=== PATIENT | male | born 1950 | race Caucasian/White ===

== ENCOUNTER → 2016-04-09 | Day surgery (SDC) | payer OTHER ==
[2016-04-03 12:24] VITALS: Ht 180.3 cm; Wt 99.1 kg
[~2016-04-09] VITALS: Ht 180.3 cm; Wt 99.1 kg
[~2016-04-09] MED LIST: ATROPINE SULFATE 0.1 MG/ML 5ML SYR IV PRN; BUPIVACAINE/EPINEPHRINE 0.5% MPF 1:200,000 30 ML VIAL ONE; CEFAZOLIN 2000 MG/60 ML D5W IV SCH; DEXAMETHASONE SOD INJ 4 MG/ML VIAL ONE; FENTANYL CITRATE INJ 50 MCG/1 ML 2 ML VIAL IV PRN; FENTANYL CITRATE INJ 50 MCG/1 ML 2 ML VIAL ONE; KETOROLAC TROMETHAMINE 30 MG/ML VIAL IV. PRN; KETOROLAC TROMETHAMINE 30 MG/ML VIAL ONE; LABETALOL HCL IV 5 MG/ML 20ML IV PRN; LACTATED RINGER'S 1000ML 1,000 ML IV SCH; LIDOCAINE HCL 2% 2 ML VIAL (20MG/ML) ONE; MIDAZOLAM HCL 1 MG/ML 2ML VIAL ONE; MoRPHine SULFATE PF 1 MG/ML 10 ML AMP/VIAL ONE; ONDANSETRON INJ 2 MG/ML 2 ML VIAL IV PRN; ONDANSETRON INJ 2 MG/ML 2 ML VIAL ONE; PROPOFOL IV EMULSION 10 MG/ML 20 ML VIAL IV ONE; SODIUM CHLORIDE 0.9% 1000ML 1,000 ML IV SCH
--- NOTE | 2016-04-09 06:55 | History & Physical Bridge Note ---
H&P Re-Evaluation Bridge Note: I have examined the patient, reviewed the History & Physical and in the interval since the performance of the History & Physical I have noted the following changes of clinical significance: No changes noted
--- NOTE | 2016-04-09 06:57 | Discharge Instructions ---
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 Post Anesthesia Instructions: If you have had General Anesthesia or IV Sedation: * Do not drive today. * Resume driving when surgeon permits. * Do not make important decisions or sign legal documents today. * Call surgeon for: 1. Temperature elevations greater than 101 degrees F. 2. Uncontrollable pain. 3. Excessive bleeding. 4. Persistent nausea and vomiting. 5. Medication intolerance (nausea, vomiting or rash). * For nausea and vomiting use only clear liquids such as: tea, soda, bouillon until nausea subsides, then gradually increase diet as tolerated. * If you have any concerns or questions, call your surgeon's office. If physician is unavailable and it is an emergency, call 911 or go to the nearest emergency room. . Instructions / Follow-Up Instructions / Follow-Up The following are instructions to follow after your Arthroscopic Knee Surgery. ACTIVITY RECOMMENDATIONS: * Minimize activity until your first visit after surgery. * No excessive walking, jogging, sports or laboring. * Return to activity is individualized. Most patients are able to return to every day activities within one month. * Return to sports or intensive labor usually occurs at 2-3 months. * Driving is not permitted until at least your first postoperative visit at a minimum. Please ask your doctor when it is safe to resume driving. If you have an automatic vehicle and your left leg has been operated on, then you may begin driving as soon as you are comfortable and can drive safely. SCHOOL/WORK RECOMMENDATIONS: * You may return to sedentary work or school when you are feeling more comfortable. This is usually 3-7 days after surgery. * Expect increased discomfort with increased activity. Continue to elevate and ice the leg as much as possible. MEDICATIONS: * You will have a prescription for pain medication and an anti-inflammatory medication after surgery. * Use the pain medication for severe pain and the anti-inflammatory for less severe pain. Once the pain medication has run out, try to use the anti-inflammatory medication. If this is not effective, contact the office for assistance. * The pain medication may cause nausea, constipation and drowsiness. You should see how they affect you before driving or similar activity. * The anti-inflammatory medication may cause stomach upset and bleeding. If this occurs let your doctor know immediately . * Take a stool softener like Colace or a laxative like Senokot to prevent constipation. DIET: * Resume previous diet. SPECIAL CARE: ICE: You have the option of an ice cooler, gel packs or ice bags. * If you have an ice cooler, refer to the instructions for that device. The ice cooler may be used continuously. * If you do not have an ice cooler, you will need to use ice bags or gel packs. Do not apply ice directly to the skin. Use a thin dressing or elise shirt between the skin and ice bag. Apply ice for 20-30 minutes and repeat every 2-4 hours. This is especially important for the first 7-10 days after surgery. Once the pain improves, use ice as needed. ELEVATION: * Keep your leg elevated at or above the level of your heart as much as possible. * Expect some increased discomfort and swelling if you are standing for any length of time. * When lying down, avoid placing anything under your knee. Rather, prop your leg up by placing several pillows under your heel or calf. DRESSING: * Your dressing will be changed at your first therapy appointment approximately 4-5 days after surgery. Band-aids, tape strips or gauze may be applied. You may then change your dressing daily. * Reapply dressing followed by the Jose D wrap or Tubi-pattern puncher stockinet and EBIce cooling pad (if chosen). * Always wash your hands prior to touching the incision area. * Once the stitches are removed, you may leave the wound open to air or cover with an Jose D wrap or Tubi-pattern puncher stockinet. * If you have been given a white elastic stocking (HOSEA hose), wear as much as possible for the first 1-3 weeks depending on swelling. * Expect some bloody drainage for the first few days after surgery. * Leave the tape strips, if present, in place for 5-7 days. * Band-aids and gauze may be changed daily. CRUTCHES: * You will need to use crutches after surgery. * You may gradually progress to full weight bearing as tolerated and wean off the crutches unless otherwise advised. * Your therapist can provide assistance weaning off crutches. * Patients who have a microfracture done may need to be toe-touch weight- bearing for 4-6 weeks. BATHING: * You may shower or sponge-bathe immediately after surgery. * The dressing will need to be covered with a plastic bag or plastic wrap until the dressing is changed on the fourth or fifth day after surgery. * Once the dressing has been changed on the fourth or fifth day after surgery, you may shower and get the incision wet. * Wash with regular soap and water. * Do not bathe (submerge the incision), soak, swim or use a hot tub until the incision is completely healed over with normal skin and the doctor has given the OK to proceed. * There is no need to apply any ointments, powders or salves to your incision. * Do not apply alcohol or hydrogen peroxide directly to the incision. * Diluted peroxide (50:50 mixture with sterile saline) may be used to clean dried blood from around the incision area. BRACE: * Bracing is generally not needed after routine Arthroscopic Knee surgery. THERAPY: * You will begin therapy four or five days after surgery. * Organized therapy with the therapist is important for the first 4-6 weeks after surgery. During that time you will attend therapy 1-3 times per week. * You will also need to do daily exercises for range of motion and strength as instructed. PROBLEMS/QUESTIONS: * If you have any problems such as severe pain, numbness, tingling or high fevers or if you have any questions, please contact the office at [phone]. * It is not uncommon to have some numbness and tingling after the surgery especially if you have had a nerve block done. This should gradually improve over the first 1- 2 days. If this persists longer or worsens please contact the office. FOLLOW UP VISIT: * If not already scheduled, please call the office at to schedule a follow-up appointment for 10 days, 6 weeks and 3 months after surgery. Diet Recommendations Recommended Home Diet: resume previous diet Procedures Procedures Performed: see op note Pending Studies Studies pending at discharge: no Medical Emergencies . Who to Call and When: Medical Emergencies: If at any time you feel your situation is an emergency, please call 911 immediately. . Non-Emergent Contact Non-Emergency issues call your: Specialist Call Non-Emergent contact if: temperature is above 101.5 . . "Provider Documentation" section prepared by Triston Carnes.
--- NOTE | 2016-04-09 07:49 | [facility] Post Operative Brief Note ---
Immediate Operative Summary Operative Date Apr 09, 2016. Pre-Operative Diagnosis Left knee degenerative joint disease with loose body Post-Operative Diagnosis Same as preop Procedure(s) Performed Left Knee Arthroscopy, Removal loose body, Chondroplasty patella femoral joint and medial compartment Surgeon Dr. Carnes Senior Health Educator Surgeon(s) Erick Marti PA-C Estimated Blood Loss Trace Findings djd/loose body/synovitis Fluids (cc crystalloids) 600cc Specimens None Drains none Anesthesia LMA/IA block Complication(s) None Disposition Recovery Room / PACU
--- NOTE | 2016-04-09 08:07 | OPERATIVE REPORT ---
DATE OF OPERATION: 04/09/2016 PREOPERATIVE DIAGNOSIS: Degenerative left knee with osteochondral loose body with mechanical symptoms. POSTOPERATIVE DIAGNOSIS: Same. OPERATION PERFORMED: 1. Exam under anesthesia. 2. Diagnostic arthroscopy. 3. Arthroscopic removal of loose body through superolateral portal. 4. Arthroscopic debridement patellofemoral joint, chondroplasty, synovectomy and light chondroplasty of medial compartment. SURGEON: Dr. Carnes. COIL WRAPPER: Erick Marti PA-C. No resident or fellow available. PERIOPERATIVE SITUATION: Medically cleared male with a history of locking and catching of his knee. Is training to ride his bicycle on a trip in [facility]. 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 Has developed mechanical symptoms with physical exam, x-ray and MRI scan revealing an intra-articular loose body with degenerative disease. OPERATION: The patient was appropriately identified, site verified, consent verified, 2 grams of Ancef confirmed as being given. The left lower extremity was examined revealing no ligamentous instability. He was then sterilely injected with 20 mL 0.5% Marcaine with epinephrine and 5 mg of Duramorph for postoperative pain control. The knee was then prepped and draped in usual routine fashion. No tourniquet was applied or utilized. Inframedial and inferolateral portals were made with arthroscopic control. On the medial side, there was extensive synovitis anteriorly. This was incidentally debrided. There was extensive articular disease noted on the patellofemoral joint. This was debrided to a stable base. Jami-patellofemoral joint synovectomy was completed, the loose body was identified. It was osteochondral so an accessory portal was made in the superolateral area enlarged with a hemostat and then grabbed and removed into the soft tissues and then removed once it was in the soft tissue outside the joint easily. This wound was then closed with 2-0 Vicryl and 3-0 horizontal mattress nylon sutures. The knee was then reinspected revealing some additional resection of articular disease of the patellofemoral joint, some light chondroplasty of the medial compartment which had some grade 2 to deep 2 to early 3 changes but no exposed bone. The medial meniscus had some minor fraying which was incidentally debrided, but was intact. The ACL and PCL were normal. The knee was then scoped with the scope in the medial side and some light debridement was carried out anterolaterally. No additional findings were noted. The procedure was then terminated. All instruments and fluid removed. The portals closed with horizontal and simple mattress 3-0 nylon sutures, dressed with a bulky dressing with Xeroform, 4 x 4 gauze, ABD pads, Webril and above knee HOSEA stocking. Estimated blood loss trace, 600 mL of fluid. DVT prophylaxis with ASA 325mg BID. Weightbearing to tolerance. Will follow up in 2 weeks for PT. Start his anticoagulation tomorrow. Overall prognosis based on degenerative findings would expect him to develop arthritic complaints in the future. I attest to the content of the Intraoperative Record and any orders documented therein. Any exceptions are noted below. KATHLEEND
[2016-04-09 08:56] VITALS: TEMP 36.8
--- NOTE | 2016-04-09 09:23 | Anesthesia Progress Nt - [facility] ---
Anesthesia Post Op Note Date & Time Apr 09, 2016 at 09:22 Vital Signs Pain Intensity: 3 Vital Signs Past 12 Hours Date Time Temp Pulse Resp B/P Pulse Ox O2 Delivery O2 Flow Rate FiO2 04/09/16 08:56 36.8 71 16 141/89 97 Room Air 04/09/16 08:25 64 12 04/09/16 08:25 64 12 96 04/09/16 08:23 129/82 04/09/16 08:20 65 13 04/09/16 08:20 64 13 99 04/09/16 08:19 36.9 63 16 129/82 98 04/09/16 08:19 36.9 68 16 128/91 97 04/09/16 07:54 120/75 04/09/16 07:53 63 12 04/09/16 07:53 59 12 99 04/09/16 07:48 79 23 04/09/16 07:48 36.9 75 20 136/77 99 Mask 8 04/09/16 07:48 78 23 137/80 100 04/09/16 06:28 36.8 72 20 135/74 96 Room Air Notes Mental Status: alert / awake / arousable, participated in evaluation Pt Amnestic to Procedure: Yes Nausea / Vomiting: adequately controlled Pain: adequately controlled Airway Patency, RR, SpO2: stable & adequate BP & HR: stable & adequate Hydration State: stable & adequate Anesthetic Complications: no major complications apparent
[2016-04-09 09:27] VITALS: BP 139/76; PULSE 58; O2SAT 98
--- NOTE | 2016-04-09 10:48 | OPERATIVE REPORT ---
DATE OF OPERATION: 04/09/2016 PREOPERATIVE DIAGNOSIS: Left knee degenerative joint disease with osteochondral loose body. POSTOPERATIVE DIAGNOSIS: Left knee same. PROCEDURE: Left knee arthroscopy, arthroscopic removal of loose body, and debridement of the patellofemoral joint with chondroplasty and synovectomy of the medial compartment. SURGEON: Dr. Carnes. TESTING COORDINATOR: Erick Marti PA-C. HISTORY OF PRESENT ILLNESS: This 66-year-old white male presented to the office with complaints of left knee pain and locking and catching with activity. X-ray and MRI were obtained. He elected to proceed with surgical intervention after being educated about potential risks and outcomes. OPERATION: The patient was taken to the operating room where he was given general anesthetic. He was prepped and draped in the usual sterile fashion. Please see Dr. Carnes's operative report for specifics of the procedure. I was present for the entire case from initial patient positioning through final wound closure. Assistance was provided in patient positioning, arthroscopy, and final wound closure. The patient was taken to the recovery room in satisfactory condition. I attest to the content of the Intraoperative Record and any orders documented therein. Any exceptio ns are noted below.
== END | disposition home or self-care (01) ==
LOC: X.SURG 06:18
PROVIDERS: ATTEND Physical Medicine & Rehabilitation Sports Medicine
DX: M17.12 Unilateral primary osteoarthritis, left knee (principal); M23.42 Loose body in knee, left knee; M65.9 Synovitis and tenosynovitis, unspecified